=== PATIENT | female | born 1990 | race African-American/Black ===

== ENCOUNTER 2016-06-19 15:55 | Emergency (ER) | payer OTHER ==
[~2016-06-19] VITALS: Ht 157.5 cm; Wt 115.3 kg
[~2016-06-19 15:55] MED LIST: ABILIFY10 MG PO; ABILIFY20 MG PO; ABILIFY5 MG PO; ADDERALL XR 5 MG5 MG PO; AMBIEN5 MG PO; AMPHETAMINE SALT5 MG PO; ARIPIPRAZOLE10 MG PO; DAILY VITE1 EAC1 PO; DIVALPROEX SOD250 MG PO; EXTRA STRENGTH500 M1 PO; FLUOXETINE HCL20 MG PO; FLUOXETINE HCL40 MG PO; KENALOG,ARISTOC15 G2 TP; LITHIUM CARBON300 M2 PO; PROPRANOLOL HCL10 MG PO; PROTONIX40 MG PO; PROZAC20 MG PO; RISPERIDONE1 MG PO; TOPAMAX25 MG PO; TRIPLE ANTIB28.35 GM TP; TYLENOL EXTRA500 MG PO; TYLENOL WITH C1 EACH PO; ZOLPIDEM TARTRA10 MG PO; ZOLPIDEM TARTRAT5 MG PO
[2016-06-19 16:27] LABS: HEMATOCRIT 40.9 % (36.0-46.0); MCH 28.2 PG (29.0-34.0); MCHC 32.3 G/DL (30.0-36.0); MCV 87.4 FL (83-99); MEAN PLAT.VOLUME 10.2 uM^3 (9.5-12.4); PLATELET COUNT 283 K/uL (156-360); RBC DIS.WIDTH-CV 12.3 % (11.8-14.6); RBC DIS.WIDTH-SD 38.7 % (39-53); RED BLOOD COUNT 4.68 M/uL (3.80-5.20); WHITE BLOOD COUNT 6.6 K/uL (4.1-10.2)
[2016-06-19 16:34] LABS: CHLORIDE 105 mEq/L (99-109); POTASSIUM 4.1 mEq/L (3.7-5.4); SODIUM 140 mEq/L (136-147)
[2016-06-19 16:36] LABS: GLUCOSE 104 mg/dL (70-99)
[2016-06-19 16:37] LABS: ANION GAP 8 MEQ/L (2-14)
[2016-06-19 16:38] LABS: TOTAL BILIRUBIN 0.2 mg/dL (0.0-1.0)
[2016-06-19 16:40] LABS: ALKALINE PHOSPHATASE 87 IU/L (3-129); GFR ESTIMATE (CALCULATED) > 59 mL/min/
[2016-06-19 16:41] LABS: UREA NITROGEN (BUN) 8 mg/dL (9-23)
[2016-06-19 16:43] LABS: LIPASE 28 U/L (1.0-51.0)
[2016-06-19 16:51] LABS: QUANTITATIVE HCG < 4.0 MIU/ML
[2016-06-19 18:56] LABS: ADD MIUA? YES; BILIRUBIN NEGATIVE; BLOOD SMALL; COLOR YELLOW ((YELLOW)); GLUCOSE (STRIP) NEGATIVE; KETONES NEGATIVE; LEUKOCYTES MODERATE; NITRITE NEGATIVE; PROTEIN (STRIP) TRACE
[2016-06-19 18:58] LABS: D-DIMER ELISA 0.53 mg/L FEU (< 0.57)
[2016-06-19 19:12] LABS: RED BLOOD CELLS 0-5 /HPF (0-5)
[2016-06-19 19:13] LABS: BACTERIA 3+ /HPF; CASTS NONE SEEN /LPF; CRYSTALS NONE SEEN; EPITHELIAL CELLS 2+ /HPF; MUCUS NONE SEEN /LPF; UCUL ADDED? NO; WHITE BLOOD CELLS 0-5 /HPF (0-5)
[2016-06-19] MEDS ORDERED: BACTRIM,SEPT1 TABLET PO (19:44)
[2016-06-19] MEDS ORDERED: MOTRIN800 MG PO (19:44)
[2016-06-19 20:20] VITALS: BP 116/64
== END 2016-06-19 20:21 | disposition home or self-care (01) ==
LOC: EXP 15:55 → EME 15:55 → EXP 20:21
DX: N39.0 Urinary tract infection, site not specified (principal); R20.8 Other disturbances of skin sensation; R07.9 Chest pain, unspecified; M79.604 Pain in right leg; M79.605 Pain in left leg; M79.89 Other specified soft tissue disorders; M54.2 Cervicalgia; Z83.2 Family history of diseases of the blood and blood-forming organs and certain disorders involving the immune mechanism
CPT/HCPCS: 74176; 80053; 81003; 83690; 84702; 85027; 85379; 99281; 99284

== ENCOUNTER 2016-06-23 15:41 | Inpatient (IN) | payer OTHER ==
[~2016-06-23] VITALS: Ht 157.5 cm; Wt 114.8 kg
[~2016-06-23 15:41] MED LIST changes: +BACTRIM,SEPT1 TABLET PO; +MOTRIN800 MG PO
[2016-06-23] MEDS ORDERED: IBUPROFEN800 MG PO (15:55)
[2016-06-23] MEDS ORDERED: TOPIRAMATE25 MG PO (15:55)
[2016-06-23] MEDS ORDERED: ABILIFY MAINTE400 M1 IM (15:55)
[2016-06-23 16:25] LABS: EOSINOPHIL (%) 1.4 % (0-5); EOSINOPHIL COUNT 0.1 K/uL (0-0.3); IMMATURE GRANULOCYTE (%) 0.1 % (0.0-0.7); IMMATURE GRANULOCYTE COUNT 0.1 K/uL; LYMPHOCYTE COUNT 2.2 K/uL (1.0-2.8); MCH 28.2 PG (29.0-34.0); MCHC 32.7 G/DL (30.0-36.0); MCV 86.2 FL (83-99); MEAN PLAT.VOLUME 10.1 uM^3 (9.5-12.4); MONOCYTE (%) 5.6 % (3-12); MONOCYTE COUNT 0.4 K/uL (0-0.8); NEUTROPHIL (%) 61.7 % (45-76); NEUTROPHIL COUNT 4.4 K/uL (1.8-6.4); PLATELET COUNT 250 K/uL (156-360); RBC DIS.WIDTH-CV 12.2 % (11.8-14.6); RBC DIS.WIDTH-SD 37.2 % (39-53); RED BLOOD COUNT 4.29 M/uL (3.80-5.20); WHITE BLOOD COUNT 7.1 K/uL (4.1-10.2)
[2016-06-23 16:35] LABS: CHLORIDE 106 mEq/L (99-109); POTASSIUM 3.9 mEq/L (3.7-5.4); SODIUM 140 mEq/L (136-147)
[2016-06-23 16:37] LABS: GLUCOSE 80 mg/dL (70-99)
[2016-06-23 16:38] LABS: ANION GAP 10 MEQ/L (2-14)
[2016-06-23 16:40] LABS: GFR ESTIMATE (CALCULATED) > 59 mL/min/; SERUM ETHYL ALCOHOL < 10 mg/dL
[2016-06-23 16:41] LABS: UREA NITROGEN (BUN) 11 mg/dL (9-23)
[2016-06-23 19:07] LABS: AMPHETAMINE NEGATIVE (500 ng/mL); BARBITURATES NEGATIVE (200 ng/mL); BENZODIAZEPINES NEGATIVE (150 ng/mL); COCAINE NEGATIVE (150 ng/mL); INTERNAL CONTROLS VALID? YES; METHADONE NEGATIVE (200 ng/mL); METHAMPHETAMINE NEGATIVE (500 ng/mL); OPIATES (MORPHINE) NEGATIVE (100 ng/mL); OXYCODONE NEGATIVE (100 ng/mL); PHENCYCLIDINE NEGATIVE (25 ng/mL); PROPOXYPHENE NEGATIVE (300 ng/mL); THC CANNABINOIDS NEGATIVE (50 ng/mL); TRICYCLIC ANTIDEPRESSANTS NEGATIVE (300 ng/mL)
[2016-06-23 19:13] LABS: INTERNAL CONTROL VALID? YES
[2016-06-23 21:11] VITALS: BP 141/63
[2016-06-23 21:14] VITALS: BP 141/63
[2016-06-24 08:16] VITALS: BP 119/56
[2016-06-24 15:13] VITALS: BP 127/80
[2016-06-25 07:48] VITALS: BP 120/65
[2016-06-25 15:52] VITALS: BP 134/60
[2016-06-26 08:13] VITALS: BP 106/72
== END 2016-06-26 13:04 | disposition home or self-care (01) | DRG 885 ==
LOC: EME 15:41 → EDOF 19:52 → 1WEST 21:08
PROVIDERS: Emergency Medicine
DX: F33.1 Major depressive disorder, recurrent, moderate (principal); R45.851 Suicidal ideations; Z68.42 Body mass index [BMI] 45.0-49.9, adult; F60.3 Borderline personality disorder; G47.30 Sleep apnea, unspecified; K21.9 Gastro-esophageal reflux disease without esophagitis; Z59.0 Homelessness; E66.9 Obesity, unspecified
CPT/HCPCS: 80048; 84703; 85025; 90837; 97150 GO; 97165 GO; 99281; 99285; G0480